=== PATIENT | female | born 1995 | race Caucasian/White ===

== ENCOUNTER 2020-12-21 04:51 | Emergency (ER) | payer SELFPAY ==
[~2020-12-21] VITALS: Ht 175.3 cm; Wt 64.9 kg
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
--- NOTE | 2020-12-21 06:29 | NUR ---
female RN at bedside during MD evaluation
--- NOTE | 2020-12-21 06:56 | NUR ---
xray at bedside
--- NOTE | 2020-12-21 08:00 | NUR ---
DR YANCEY AT BEDSIDE
[2020-12-21] MEDS ORDERED: IBUP-1955 PO (08:07)
[2020-12-21 08:19] VITALS: BP 122/81
--- NOTE | 2020-12-21 08:19 | NUR ---
Patient discharged to home in stable condition. Written and verbal after care instructions given. Patient verbalizes understanding of instruction.
== END 2020-12-21 08:19 | disposition home or self-care (01) ==
LOC: ER 05:22
DX: S40.022A Contusion of left upper arm, initial encounter (principal); J45.909 Unspecified asthma, uncomplicated; V49.49XA Driver injured in collision with other motor vehicles in traffic accident, initial encounter; Y93.89 Activity, other specified; Y92.413 State road as the place of occurrence of the external cause; Y99.8 Other external cause status
CPT/HCPCS: 73030-TC; 73060-TC; 73080-TC